=== PATIENT | male | born 1975 | race Two or more races ===

== ENCOUNTER 2018-05-16 08:44 | Emergency (ER) | payer OTHER ==
[~2018-05-16] VITALS: Ht 180.3 cm; Wt 119.7 kg
[2018-05-16 08:56] VITALS: Ht 180.3 cm; Wt 119.7 kg
[2018-05-16 10:11] VITALS: BP 109/75
== END 2018-05-16 10:11 | disposition home or self-care (01) ==
LOC: ED 08:44
DX: L29.9 Pruritus, unspecified (principal); E11.9 Type 2 diabetes mellitus without complications
CPT/HCPCS: J1200

== ENCOUNTER 2018-08-29 14:18 | Inpatient (IN) | payer OTHER ==
[~2018-08-29] VITALS: Ht 177.8 cm; Wt 118.6 kg
[2018-08-29 17:23] LABS: CALCIUM 9.2 mg/dL (8.5-10.1); CARBON DIOXIDE 28.2 mmol/L (21-32); CHLORIDE SERUM 100 mmol/L (98-107); GFR1 > 60 mL/min; GLUCOSE SERUM 340 mg/dL (74-106); POTASSIUM SERUM 4.1 mmol/L (3.5-5.1); SODIUM SERUM 137 mmol/L (136-145)
[2018-08-29 17:35] LABS: ALKALINE PHOSPHATASE 128 U/L (46-116); ALT/SGPT 44 U/L (16-63); AST/SGOT 13 U/L (15-37); LIPASE 229 IU/L (73-393)
[2018-08-29 17:44] LABS: TOTAL PROTEIN, SERUM 8.9 g/dL (6.4-8.2)
[2018-08-29 17:47] LABS: BASOPHIL % 0.4 % (0-2); PLATELET COUNT 258 x10^3mcL (130-400); RED CELL DISTRIBUTION WIDTH 13.5 % (11.5-14.5)
[2018-08-29] MEDS ORDERED: METFORMIN HCL500 MG PO (18:58)
[2018-08-29 19:06] LABS: microscopic required? NO
[2018-08-29 19:13] LABS: urine erythrocyte NEGATIVE (NEGATIVE)
[2018-08-29 19:54] VITALS: BP 121/77
[2018-08-29 19:58] VITALS: Ht 177.8 cm; Wt 118.6 kg
[2018-08-29 20:13] LABS: AMPHETAMINE QUAL UR NONE DETECTED (See below)
[2018-08-30 05:04] VITALS: BP 103/60
[2018-08-30 09:31] VITALS: BP 119/64
[2018-08-30 10:27] LABS: BASOPHIL % 0.3 % (0-2); PLATELET COUNT 246 x10^3mcL (130-400); RED CELL DISTRIBUTION WIDTH 13.5 % (11.5-14.5)
[2018-08-30 14:23] VITALS: BP 106/66
[2018-08-30 17:15] VITALS: BP 119/62
[2018-08-30 19:42] VITALS: BP 114/76
[2018-08-30] MEDS ORDERED: ECO81 PO (19:48)
== END 2018-08-30 20:09 | disposition home or self-care (01) | DRG 313 ==
LOC: ED 14:18 → DU 19:01
PROVIDERS: Emergency Medicine; Internal Medicine
DX: R07.9 Chest pain, unspecified (principal); Z68.41 Body mass index [BMI] 40.0-44.9, adult; E66.01 Morbid (severe) obesity due to excess calories; E11.65 Type 2 diabetes mellitus with hyperglycemia; Z79.82 Long term (current) use of aspirin; Z79.4 Long term (current) use of insulin; Z79.1 Long term (current) use of non-steroidal anti-inflammatories (NSAID)
CPT/HCPCS: 82962; 83880; 85378; 90658; J7030; Q0092